=== PATIENT | female | born 1960 | race Caucasian/White ===

== ENCOUNTER → 2025-01-28 12:41 | Outpatient (BNVA) | payer MEDICARE, SELFPAY | PROVIDERS: Visit Provider Dermatology | DX: D22.39 Melanocytic nevi of other parts of face (principal); L57.8 Other skin changes due to chronic exposure to nonionizing radiation; L81.4 Other melanin hyperpigmentation; L72.0 Epidermal cyst; Z08 Encounter for follow-up examination after completed treatment for malignant neoplasm; Z85.828 Personal history of other malignant neoplasm of skin | CPT/HCPCS: 99213 ==